=== PATIENT | male | born 1965 | race Two or more races ===

== ENCOUNTER 2023-05-22 23:30 | Emergency (ER) | payer OTHER ==
[~2023-05-22] VITALS: Ht 165.1 cm; Wt 86.2 kg
[2023-05-23] MEDS ORDERED: CARAFATE1 GM PO (01:30)
== END 2023-05-23 01:47 | disposition home or self-care (01) ==
LOC: ER 23:30
DX: K29.60 Other gastritis without bleeding (principal)
CPT/HCPCS: 96365; 99283; J1885; J2405; J2930; J3490